=== PATIENT | male | born 1980 | race Caucasian/White ===

== ENCOUNTER 2017-01-31 22:43 | Observation (INO) | payer BC ==
[~2017-01-31] VITALS: Ht 188 cm; Wt 109.0 kg
[2017-01-31] MEDS ORDERED: FLUT1DIS2 IH (23:16)
--- NOTE | 2017-01-31 23:35 | NUR ---
RESTING IN BED AT BEDSIDE. PT SAYS FEELS COLD BUT OTHERWISE OK
--- NOTE | 2017-01-31 23:45 | NUR ---
O2 sat 98% on 3 L. O2 decreased to 2 L.
--- NOTE | 2017-01-31 23:55 | NUR ---
O2 sat remains 98% on 2L. O2 decreased to 1 L. Pt denies shortness of breath or other complaints.
--- NOTE | 2017-02-01 00:10 | NUR ---
O2 sat 98% on 1 L. O2 dc'd.
[2017-02-01] MEDS ORDERED: ONDANSETRON 2 MG/ML (Z0FRAN) 2 ML VIAL IV PRN (00:30)
[2017-02-01] MEDS ORDERED: ACETAMINOPHEN 325 MG TAB (TYLENOL) PO PRN (00:30)
[2017-02-01] MEDS ORDERED: FAMOTIDINE 20 MG (PEPCID) TABLET PO ONE (00:35)
[2017-02-01] MEDS ORDERED: diphenhydrAMINE 25 MG (BENADRYL) TABLET PO PRN (00:35)
[2017-02-01] MEDS ORDERED: predniSONE 20 MG (DELTASONE) TABLET PO ONE (00:35)
--- NOTE | 2017-02-01 00:40 | NUR ---
Pt arrived to room 313 via wheelchair, accompanied by Earline RN and , alert and oriented x 4, Resp are even and nonlabored, LCTAB, HRRR, BS are active x 4 quadrants. Pt does have reddened area to left wrist that is circled to monitor swelling from bee sting. SL to RBH is patent, no redness, swelling, or s/s of infection noted at this time. Denies pain or discomfort at this time, call light in reach, will continue to monitor.
[2017-02-01 00:58] VITALS: BP 130/78
[2017-02-01 01:00] VITALS: BP 130/78
--- NOTE | 2017-02-01 01:28 | History and Physical (E) ---
History & Physical PCP: Pepe Barcenas MD CC: Anaphylactic Shock HPI: 36 yo M with PMH of asthma presented to the ED tonight via EMS after having an anaphylactic reaction to a bee sting. 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 Patient reports shortly after feeling like his heart was beating in his head, he then started to become dizzy and SOA. Patient reports he passed out and doesn't remember what happened. His called EMS, and back up fire truck was first on scene. patient was given 2 doses of epi pen marcelino, then when EMS arrived patient was given solumedrol 125mg IV, benadryl 50mg, albuterol, epi IV and zofran. Patient then started to become more responsive and his oxygen sat's improved. Patient denies RXN to bee stings in the past, or any anaphylactic reaction in the past. He reports he gets stung often at work and normally has a minimal localized response that is self limited. Patient was admitted for airway management and observation. PMH- Asthma PSH- non ALLERGIES: Please see list at end of report. HOME MEDICATIONS: Please see list at end of report. FH- non contributory SH- works for a [employer], keeps bee hives. . No recreational drug use. ROS CONSTITUTION: Denies weight loss or gain. Denies fever or chills. HEENT: No change in vision or hearing. No sores in mouth, sore throat. CV: No chest pain, palpitations. PULM: No cough, shortness of breath, difficulty breathing. GI: No upset stomach, nausea, vomiting, constipation, or diarrhea. No blood in stool. : No dysuria. No blood in urine. MS: No new muscle or joint aches and pains. NEURO: No numbness or tingling. No weakness. INTEG: No rashes, lesions, or sores. ENDO: No heat or cold intolerance. No polydipsia or polyuria. HEME/LYMPH: No easy bruising or bleeding. No swollen glands. PSYCH: No change in mood or behavior. OBJECTIVE- Vitals reviewed. GEN: Awake, alert, oriented, NAD HEENT: EOMI, PERRL, moist oral mucosa. CV: RRR S1 S2 normal with no murmur LUNGS: CTA B ABD: Soft, NT/ND with normal bowel sounds. EXTR: No C/C/E. Normal peripheral pulses. INTEG: No rash. NEURO: No focal motor neuro deficit. Weight: 109 kg LABS- no labs or imaging ordered. MICRO IMAGING ASSESSMENT- 1) anaphylactic shock- resolved with supportive care from EMS. 2) allergic reaction to bee sting PLAN Admit patient for monitoring. Order Pepcid, prednisone 40mg PO x1. Benadryl PRN , and oxygen as needed tonight. Will monitor for refractory symptoms. Patient will need RX for epi-pen upon discharge as he does not have one at home. Allergies/Home Medications Allergies: Coded Allergies: No Known Drug Allergies (Unverified , 01/31/17) Reported Home Medications Scheduled Fluticasone/Salmeterol (Advair 100-50 Diskus) 1 EACH IH DAILY (Reported) Copies to: End of Report . FABIO ALONZO MD February 01, 2017 01:28
[2017-02-01 04:20] VITALS: BP 130/74
--- NOTE | 2017-02-01 04:33 | NUR ---
Pt is currently resting in bed asleep, does not appear to be in pain or discomfort at this time. VS are WNL, call light is in reach, will continue to monitor.
[2017-02-01 07:30] VITALS: BP 120/60
[2017-02-01] MEDS ORDERED: NS FLUSH 10 ML PRN IV (07:50)
[2017-02-01] MEDS ORDERED: NS FLUSH 3 ML PRN IV (07:50)
--- NOTE | 2017-02-01 08:00 | NUR ---
Pt rests in bed at this time. Denies pain, SOA, itchiness, discomfort. States he feels fine. When asked if he feels like a million bucks, pt states "oh maybe not that much! I almost last night". at bedside. LFA wound shows no redness, pin hole sized wound. Pt states "this is what it normally looks like after I'm stung". Skin warm, dry, intact. Resprs nonlabored, even on RA. SL intact. Denies needs.
[2017-02-01] MEDS ORDERED: predniSONE 10 MG (DELTASONE) TABLET PO SCH (08:25)
[2017-02-01] MEDS ORDERED: FAMOTIDINE 20 MG (PEPCID) TABLET PO SCH (09:00)
[2017-02-01] MEDS ORDERED: NS FLUSH 3 ML DAILY IV SCH (09:00)
--- NOTE | 2017-02-01 09:04 | Progress Note-A/P (E) ---
Progress Note Subjective Subjective status post anaphylactic shock resolved. Objective VS Vital Signs Date Time Temp Pulse Resp B/P Pulse Ox O2 Delivery O2 Flow Rate FiO2 02/01/17 07:30 97.0 79 20 120/60 97 Room air 01/31/17 22:48 3 I&O I & O Cumulative 01/31/17 02/01/17 Cumulative From/Thru 19:00 07:00 01/31/17 22:45 - 02/01/17 06:11 Intake Total 1000 ml 1000 ml Output Total 650 ml 650 ml Balance 350 ml 350 ml Current Medications Current Medications Acetaminophen 650 mg Q4H PRN PO; Start 02/01/17 at 00:30 Ondansetron HCl 4 mg Q6H PRN IV; Start 02/01/17 at 00:30 Famotidine 20 mg BID PO; Start 02/01/17 at 09:00 Diphenhydramine HCl 25 mg Q4H PRN PO; Start 02/01/17 at 00:35 Sodium Chloride 3 ml DAILY IV; Start 02/01/17 at 09:00 Sodium Chloride 3 ml UD PRN IV; Start 02/01/17 at 07:50 Sodium Chloride 10 ml UD PRN IV; Start 02/01/17 at 07:50 General Awake, alert, oriented to person, place, and situation. NAD at present HEENT EOMI, PERRL CV RRR, S1 S2 audible Lungs Clear No rales, rhonchi or wheezes OBJECTIVE- Vitals reviewed. GEN: Awake, alert, oriented, NAD HEENT: EOMI, PERRL, moist oral mucosa. CV: RRR S1 S2 normal with no murmur LUNGS: CTA B ABD: Soft, NT/ND with normal bowel sounds. EXTR: No C/C/E. Normal peripheral pulses. INTEG: No rash. NEURO: No focal motor neuro deficit. Abdomen Soft non distended, no tenderness to palpation, no masses Extremities No edema Integumentary dermatographia present. Neuro No focal motor neuro deficits Musculoskeletal wnl Labs, Most Recent- Laboratory Results Past 24 Hrs 02/01/17 08:40: Immunoglobulin G [Pending], Immunoglobulin M [Pending], Serum Immunoglobulin A [ Pending] 24 Hr Result Diagram Current Medications Acetaminophen 650 mg Q4H PRN PO; Start 02/01/17 at 00:30 Ondansetron HCl 4 mg Q6H PRN IV; Start 02/01/17 at 00:30 Famotidine 20 mg BID PO; Start 02/01/17 at 09:00 Diphenhydramine HCl 25 mg Q4H PRN PO; Start 02/01/17 at 00:35 Sodium Chloride 3 ml DAILY IV; Start 02/01/17 at 09:00 Sodium Chloride 3 ml UD PRN IV; Start 02/01/17 at 07:50 Sodium Chloride 10 ml UD PRN IV; Start 02/01/17 at 07:50 Micro Results acute anaphylactic reaction resolved. Impressions will gather immune blood results send pt for allegin workup. 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 Assessment as above and send home with epi ADOLFO Mcgovern DO February 01, 2017 09:04
[2017-02-01] MEDS ORDERED: PRED10TA PO (09:47)
[2017-02-01] MEDS ORDERED: EPIN0.3P2 IM (09:47)
--- NOTE | 2017-02-01 09:54 | Discharge Instructions (E) ---
Discharge Instructions Instructions pcp visit Sunday02-05-17 continue prednisone for three days and continue home albuteral and advair as prior hospital stay. Activity Instructions activity as tolerated. Doctor's Appointment Dr. Barcenas Sunday Discharge Diet: Regular Problem List Problems: (1) Wasp sting-induced anaphylaxis Status: Resolved ADOLFO DAMICO DO February 01, 2017 09:54
--- NOTE | 2017-02-01 10:25 | Discharge Summary (E FT) ---
Discharge Summary (E FT) Admit Date February 01, 2017 at 00:17 Discharge Date February 01, 2017 Admitting Provider Gail Regan MD Primary Care Provider Pepe Barcenas MD Attending Provider Gail Regan MD Consulting Provider Hospital Course Summary CC: Anaphylactic Shock HPI: 36 yo M with PMH of asthma presented to the ED tonight via EMS after having an anaphylactic reaction to a bee sting. 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 Patient reports shortly after feeling like his heart was beating in his head, he then started to become dizzy and SOA. Patient reports he passed out and doesn't remember what happened. His called EMS, and back up fire truck was first on scene. patient was given 2 doses of epi pen marcelino, then when EMS arrived patient was given solumedrol 125mg IV, benadryl 50mg, albuterol, epi IV and zofran. Patient then started to become more responsive and his oxygen sat's improved. Patient denies RXN to bee stings in the past, or any anaphylactic reaction in the past. He reports he gets stung often at work and normally has a minimal localized response that is self limited. Patient was admitted for airway management and observation. 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 Copies to: End of Report . Elba Mendez APRN February 01, 2017 10:25
--- NOTE | 2017-02-01 10:36 | NUR ---
Reviewed discharge medications with patient. Provided patient handout information for new medications. Demonstrated use of Epi-pen administration with patient and . No additional questions or concerns. Patient verbalized understanding of medications.
--- NOTE | 2017-02-01 11:15 | NUR ---
Discharge instructions reviewed with patient and spouse, both demonstrate understanding. SL removed with catheter tip intact. Pressure held, bandage applied. Skin warm, dry, intact. Resprs nonlabored, even on RA. Pt was very appreciative of all cares from EMS and hospital staff. States "I have absolutely no complaints". Pt dismissed at this time via ambulation accompanied by CAM Mcallister and spouse. Belongings and DC packet sent with patient.
== END 2017-02-01 11:15 | disposition home or self-care (01) ==
LOC: ED 22:50 → MED/SURG 02-01 00:17
PROVIDERS: ADMIT Internal Medicine; ATTEND Internal Medicine
DX: T63.441A Toxic effect of venom of bees, accidental (unintentional), initial encounter (principal); T78.2XXA Anaphylactic shock, unspecified, initial encounter; J96.90 Respiratory failure, unspecified, unspecified whether with hypoxia or hypercapnia; L50.3 Dermatographic urticaria; J45.909 Unspecified asthma, uncomplicated
CPT/HCPCS: 36415; 82784; 85652; 86140; 94762; 99218; 99283; 99284

== ENCOUNTER → 2017-01-31 | Outpatient (CLI) | payer BC ==
[~2017-01-31] MED LIST: EPIN0.3P2 IM; FLUT1DIS2 IH; PRED10TA PO
== END ==
LOC: EMS 22:40
PROVIDERS: ATTEND Emergency Medicine
DX: T63.441A Toxic effect of venom of bees, accidental (unintentional), initial encounter (principal)